=== PATIENT | male | born 1950 | race Caucasian/White ===

== ENCOUNTER → 2017-07-20 | Outpatient (CLI) | payer MEDICARE, BC | LOC: M WUC 12:55 | DX: M85.88 Other specified disorders of bone density and structure, other site (principal); M25.78 Osteophyte, vertebrae; M51.35 Other intervertebral disc degeneration, thoracolumbar region; M53.84 Other specified dorsopathies, thoracic region; M54.5 Low back pain; Z96.698 Presence of other orthopedic joint implants | CPT/HCPCS: 72072 ==

== ENCOUNTER → 2018-08-20 | Outpatient (CLI) | payer MEDICARE, BC ==
[~2018-08-20] MED LIST: ACET65TA OR; ALEVE PO; AMANTADINE PO; CEFT2ADD IV; CEFUROXIME PO; IBUP400T OR; LEVO150T PO; MULTIVITAMIN PO; REQU1TAB16 PO; REQU4TAB3 OR; SILD50TA OR; THERGRAN PO; TOVIAZ PO; VICODINES TAB OR; VICODINES TAB PO; VIT D 2000 PO; VITA400C PO; VITA500C PO; XANA0.25 PO; [UNRECOGNIZED DRUG - OTHER] PO
--- NOTE | 2018-08-21 06:44 | REP ---
HISTORY: Low back pain. COMPARISON: 07/20/2017 There is no change from 07/20/2017 Postoperative changes noted. Pacemaker device noted. Spinal fixators unchanged. No evidence of acute disease. Electronically Signed by aJyesh Dailey DO 08/21/2018 09:10 A
--- NOTE | 2018-08-21 06:55 | REP ---
HISTORY: Back pain. COMPARISON: 07/20/2017 No change from the prior exam. Spinal fixators status quo. Transpedicular screws status quo. Spinal fusion status quo. Multiple vertebral body compression fractures status quo. No significant change in appearance of alignment. Inferior vena cava filter again noted. It too, appears unchanged. IMPRESSION: No change. Electronically Signed by Jayesh Dailey DO 08/21/2018 09:10 A
== END ==
LOC: M WUC 13:43
PROVIDERS: ATTEND Physician Assistant
DX: M54.5 Low back pain (principal); M54.6 Pain in thoracic spine

== ENCOUNTER 2020-07-17 17:31 | Emergency (ER) | payer BC, MEDICARE, OTHER ==
[~2020-07-17] VITALS: Ht 182.9 cm; Wt 102.3 kg
[2020-07-17 17:43] VITALS: BP 164/81
== END 2020-07-17 19:23 | disposition home or self-care (01) ==
LOC: EDBD 17:31 → M ED 17:31
DX: Z04.1 Encounter for examination and observation following transport accident (principal); Z95.0 Presence of cardiac pacemaker; Z79.899 Other long term (current) drug therapy; Z88.8 Allergy status to other drugs, medicaments and biological substances

== ENCOUNTER 2021-12-18 11:09 | Day surgery (SDC) | payer MEDICARE, BC ==
[~2021-12-18] VITALS: Ht 182.9 cm; Wt 92.6 kg
[~2021-12-18 11:09] MED LIST changes: +ACET-683 PO; +ASPERCREME 4% TOP; +CARB1TAB97 PO; +CARB25TA18 PO; +DEPA1TAB3 PO; +DEPA250T32 PO; +ECOT81TA5 PO; +LEVO112T2 PO; +LEVO50TA5 PO; +MELA5CAP2 PO; +MS C15TA8 PO; +MUSC1CRE TOP; +OXYC10TA3 PO; +ROPI3TAB3 PO; +SENN-23 PO; +SERT-141 PO; +[UNRECOGNIZED DRUG - CODE] TD; +ceFAZolin SOD 2 GM in IV 1 EA IV ONE
[2021-12-18 12:02] LABS: INR 0.97; PROTHROMBIN TIME 13.3 SECONDS (12.7-14.5)
[2021-12-18] MEDS ORDERED: TIZA6CAP6 PO (12:27)
[2021-12-18] MEDS ORDERED: LIDO1PAD13 TD (12:27)
[2021-12-18] MEDS ORDERED: LR 1,000 ML IV SCH (14:15)
[2021-12-18] MEDS ORDERED: VANCOMYCIN 1000MG/20ML VIAL As Ordered ONE (14:49)
[2021-12-18] MEDS ORDERED: LIDOCAINE 1% SDV 30ML VIAL As Ordered ONE (14:49)
[2021-12-18] MEDS ORDERED: fentaNYL 100 MCG/2 ML INJECTION As Ordered ONE (16:30)
[2021-12-18] MEDS ORDERED: PHENYLephrine 500MCG 5ML (100MCG/ML) SYRINGE As Ordered ONE (16:30)
[2021-12-18] MEDS ORDERED: ACETAMINOPHEN 1000MG 100ML IV BTL (OFIRMEV) (J0131 PER 10MG) As Ordered ONE (16:30)
[2021-12-18] MEDS ORDERED: ONDANSETRON 4MG 2ML VIAL As Ordered ONE (16:30)
[2021-12-18] MEDS ORDERED: propofoL 200 MG/20 ML VIAL As Ordered ONE (16:30)
[2021-12-18] MEDS ORDERED: MIDAZOLAM INJ 2MG/2ML VIAL (J2250 PER 1MG) As Ordered ONE (16:30)
[2021-12-18] MEDS ORDERED: ePHEDrine SULFATE 25 MG/5 ML(5MG/ML) SYRINGE As Ordered ONE (16:30)
[2021-12-18 17:20] VITALS: BP 118/59
== END 2021-12-18 17:32 | disposition home or self-care (01) ==
LOC: M SDC 11:09
PROVIDERS: ATTEND Internal Medicine Cardiovascular Disease
DX: Z45.010 Encounter for checking and testing of cardiac pacemaker pulse generator [battery] (principal); I10 Essential (primary) hypertension; E07.9 Disorder of thyroid, unspecified; G20 Parkinson's disease; Z99.3 Dependence on wheelchair; Z79.899 Other long term (current) drug therapy
CPT/HCPCS: 33229; 36415; 85610; C1785; J0131; J0690; J2250; J2370; J2405; J3010